=== PATIENT | male | born 1965 | race Caucasian/White ===

== ENCOUNTER 2023-04-06 09:44 | Emergency (ER) | payer OTHER, SELFPAY ==
[2023-04-06 09:58] VITALS: BP 169/84; PULSE 89; RESP 18; TEMP 36.4; O2SAT 99
--- NOTE | 2023-04-06 10:32 | ED.URI ---
HPI - URI/Sore Throat General Chief Complaint: Upper Respiratory Infection Stated Complaint: cold symptoms Time Seen by Provider: 04/06/23 10:24 Source: patient and RN notes reviewed Mode of arrival: ambulatory Limitations: no limitations History of Present Illness HPI Narrative: Patient presents today with a 4 day history of nasal congestion, cough, sore throat, headache, fatigue. Also states low-grade fever of 99 yesterday. Reports son has been ill with bronchitis recently. Denies shortness of breath. He has been taking cold and flu medicine, Sudafed, NyQuil, and ibuprofen without much relief. Denies history of asthma or COPD. He is a nonsmoker. He also uses Flonase and Zyrtec for seasonal allergies. Related Data Home Medications Medication Instructions Recorded Confirmed alogliptin 25 mg tablet 25 mg PO DAILY 04/06/23 04/06/23 cetirizine 10 mg tablet 10 mg PO DAILY 04/06/23 04/06/23 fluticasone propionate 50 2 spray intranasal DAILY 04/06/23 04/06/23 mcg/actuation nasal spray,suspension glimepiride 4 mg tablet 4 mg PO DAILY 04/06/23 04/06/23 losartan 50 mg tablet 50 mg PO DAILY 04/06/23 04/06/23 metformin 750 mg tablet,extended 750 mg PO DAILY 04/06/23 04/06/23 release 24 hr metoprolol succinate 200 mg 200 mg PO DAILY 04/06/23 04/06/23 tablet,extended release 24 hr Allergies Allergy/AdvReac Type Severity Reaction Status Date / Time dapsone Allergy Rash Verified 04/06/23 10:01 Review of Systems Review of Systems: CONSTITUTIONAL: Denies body aches, chills, or sweats.+ fever, fatigue EYES: Denies visual changes, redness, or discharge. ENT: Denies rhinorrhea, or otalgia.+ congestion, sore throat CARDIOVASCULAR: Denies chest pain, palpitations, or edema. RESPIRATORY: Denies dyspnea.+ cough GASTROINTESTINAL: Denies abdominal pain, nausea, vomiting, or diarrhea. GENITOURINARY: Denies dysuria or hematuria. SKIN: Denies rash, itching, or wounds. MUSCULOSKELETAL: Denies back pain, joint pain, or myalgia. NEUROLOGIC: Denies numbness, tingling, or weakness.+ headache PSYCH: Denies depression or anxiety. PMFSH Comments At time of signature, I have reviewed and agree with nursing past medical, surgical, social and family history unless otherwise noted. Please see nursing chart for further information. There is no relevant family history pertinent to the presenting complaint Exam Narrative: GENERAL: Mildly ill-appearing, well-nourished, and in no acute distress. HEAD: Normocephalic, atraumatic. EYES: EOMI. No redness or drainage. Conjunctivae normal. ENT: Mucous membranes pink and moist. Nares congested with rhinorrhea. Bilateral nasal turbinates edematous. TMs normal bilaterally. Throat normal. Uvula midline. NECK: Normal AROM. Supple. No lymphadenopathy. CHEST: No respiratory distress. Clear to auscultation. HEART: Regular rate and rhythm. No murmur appreciated. Normal peripheral pulses. EXTREMITIES: Normal range of motion. No edema. SKIN: Warm, dry, no rash. Capillary refill normal. Normal skin turgor. NEURO: No focal deficits. Alert and oriented x3. Gait steady. PSYCH: Normal affect. No signs of depression or anxiety. Course Course Level of Care: Express Care Visit Vital Signs Vital signs: Vital Signs Temperature 97.6 F 04/06/23 09:58 Pulse Rate 89 04/06/23 09:58 Respiratory Rate 18 04/06/23 09:58 Blood Pressure 169/84 H 04/06/23 09:58 Pulse Oximetry 99 04/06/23 09:58 Oxygen Delivery Room Air 04/06/23 09:58 Temperature 97.6 F 04/06/23 09:58 Pulse Rate 89 04/06/23 09:58 Respiratory Rate 18 04/06/23 09:58 Blood Pressure 169/84 H 04/06/23 09:58 Pulse Oximetry 99 04/06/23 09:58 Oxygen Delivery Room Air 04/06/23 09:58 Reviewed. Pt has been instructed to follow up with his PCP regarding his elevated blood pressure today. MDM - URI/Sore Throat MDM Narrative Medical decision making narrative: Symptoms and exam consistent with v
== END 2023-04-06 10:44 | disposition home or self-care (01) ==
PROVIDERS: Emergency Provider Nurse Practitioner
DX: J40 Bronchitis, not specified as acute or chronic (principal); J06.9 Acute upper respiratory infection, unspecified; E78.00 Pure hypercholesterolemia, unspecified; E11.9 Type 2 diabetes mellitus without complications
CPT/HCPCS: 99203; G0463